=== PATIENT | female | born 1990 ===

== ENCOUNTER → 2023-09-28 06:40 | Outpatient (REF) | payer OTHER, SELFPAY ==
[2023-10-01 13:04] LABS: Quantiferon Mitogen minus NIL 4.48 IU/mL; Quantiferon TB Gold Plus Negative (Negative)
== END ==
LOC: REG 06:40
PROVIDERS: ATTENDING PHYSICIAN Internal Medicine Infectious Disease
DX: Z11.1 Encounter for screening for respiratory tuberculosis (principal)
CPT/HCPCS: 36415; 86480

== ENCOUNTER → 2023-10-12 06:37 | Outpatient (REF) | payer OTHER, SELFPAY ==
[2023-10-13 19:37] LABS: Hepatitis B Surface Antibody Negative
[2023-10-15 03:29] LABS: Quantiferon Mitogen minus NIL 3.08 IU/mL; Quantiferon NIL 0.03 IU/mL; Quantiferon TB Gold Plus Negative (Negative)
== END ==
LOC: REG 06:37
PROVIDERS: ATTENDING PHYSICIAN Internal Medicine Infectious Disease; FAMILY PHYSICIAN Family Medicine
DX: Z11.1 Encounter for screening for respiratory tuberculosis (principal); Z23 Encounter for immunization
CPT/HCPCS: 36415; 86480; 86706